=== PATIENT | female | born 2000 | race Two or more races ===

== ENCOUNTER 2023-08-05 19:11 | Emergency (ER) | payer OTHER ==
[~2023-08-05] VITALS: Ht 160 cm; Wt 77.6 kg
[2023-08-06] MEDS: cefTRIAXone SOD 1,000 MG VL IM ONE (00:14)
[2023-08-06] MEDS ORDERED: CEPH500C PO (00:23)
[2023-08-06] MEDS ORDERED: MUPI2OIN2 EX (00:23)
[2023-08-06 01:14] VITALS: BP 132/78; PULSE 87; RESP 18; TEMP 98; O2SAT 100
[2023-08-06] MEDS ORDERED: CLIN1CAP70 PO (01:24)
== END 2023-08-06 01:50 | disposition home or self-care (01) ==
LOC: ER 19:11
DX: O86.00 Infection of obstetric surgical wound, unspecified (principal); Z98.890 Other specified postprocedural states
CPT/HCPCS: 96372; 99283; J0696